=== PATIENT | female | born 1945 | race Caucasian/White ===

== ENCOUNTER 2025-04-08 14:00 | Emergency (ER) | payer MEDICARE, SELFPAY ==
[2025-04-08 14:02] VITALS: BP 169/83
[2025-04-08 14:21] LABS: Urine Character Clear (Clear)
[2025-04-08 14:31] LABS: Urine Red Blood Cell 0-2 /HPF (0-2); Urine Squamous Cell 0-2 /LPF (Few); Urine White Cell 0-2 /HPF (0-5)
[2025-04-08 15:00] VITALS: BMI 26.0
[2025-04-08 15:22] LABS: Hematocrit 34.5 % (37.0-47.0); Hemoglobin 11.3 g/dL (12.0-16.0); Mean Corp Hgb Conc. 32.8 g/dL (33.0-37.0); Mean Corpuscular Volume 90.1 fL (81.0-99.0); Nucleated Red Blood Cells % 0 %; Platelet Count 181 10^3/uL (130-400); Red Cell Dist. Width 12.6 % (11.5-14.5)
--- NOTE | 2025-04-08 15:22 | ED.GENMED ---
History of Present Illness
General
Chief Complaint: Abdominal Pain
Source: patient
Exam Limitations: none
Time Seen by Provider: 04/08/25 14:38
Nursing documentation reviewed up to this point in time: agreed with
History of Present Illness
History of Present Illness:
79-year-old female past medical history of CAD hyperlipidemia presenting to the emergency department today with concerns of right lower quadrant Bebeto pain throughout the day today had some bloating over the past week or so denies nausea vomiting
diarrhea no changes in urination.
Past History
Past History
ED Past Medical History: CAD, Hypercholesterolemia and Hypothyroidism
ED Past Surgical History: Cardiac (Cardiac stent)
Social History
Tobacco: Non-smoker
Alcohol: None
Drug: None
Living: with family
Review of Systems
Review of Systems
Allergies reviewed?: Yes
All Other Systems: ROS reviewed and negative except as documented in HPI and ROS
Phy Exam
Physical Exam
Physical Exam:
GENERAL: Alert , in no apparent distress
EYE: pupils equal and reactive
NECK: Supple, no significant adenopathy.
ENT: o/p clr, mmm.
CARDIAC: Regular rate and rhythm .
LUNGS: Clear breath sounds bilaterally, no acute respiratory distress, no wheezes/rales/rhonchi
ABDOMEN: Mild vague right lower quadrant pain, otherwise soft, without focal tenderness, no r/g, no cvat
NEUROLOGICAL: Alert and oriented, no focal neuro deficits
SKIN: Warm and dry, skin intact.
MUSCULOSKELETAL: No edema, well perfused.
PSYCH: Normal and appropriate interaction.
Course
Orders/Labs/Results
Orders:
Orders
04/08/25 14:11
Urinalysis Reflex To Culture Urgent
Date Specimen was Collected: 04/08/25
Time Specimen was Collected: 14:05
Urine Microscopic Reflex Cult Urgent
Urine Culture Urgent
BINTA Source: U
Specimen Description:
Date Specimen was Collected: 04/08/25
Time Specimen was Collected: 14:05
04/08/25 15:09
CBC/With Diff [Complete Blood Count/With Diff] Urgent
Comprehensive Metabolic Panel Urgent
04/08/25 15:10
CT Abd/Pel (IV only)-DH only Urgent
Comment:
Reason For Exam: rlq pain
Abnormal Lab Results
04/08/25 04/08/25
14:11 15:09
RBC 3.83 L 10^6/uL
(4.20-5.40)
Hgb 11.3 L g/dL
(12.0-16.0)
Hct 34.5 L %
(37.0-47.0)
MCHC 32.8 L g/dL
(33.0-37.0)
MPV 11.1 H fL
(7.4-10.4)
Abs Immat Gran (auto) 0.1 H 10^3/uL
(0-0.05)
Immature Gran % 1.3 H %
(0-0.5)
Chloride 109 H mmol/L
(98-107)
BUN 26 H mg/dl
(7-17)
Glucose 110 H mg/dl
(70-99)
Total Protein 6.0 L g/dl
(6.3-8.2)
Ur Occult Blood Reflex 3+ A
(Negative)
Leukocyte Esterase Rfl 1+ A
(Negative)
Urine Bacteria (Reflex) Few A
(Negative)
04/08/25 15:09
04/08/25 15:09
Vital Signs
Initial and Last Documented VS:
Initial Vital Signs
Temp Pulse Resp BP Pulse Ox
36.6 C 87 16 169/83 99
04/08/25 14:02 04/08/25 14:02 04/08/25 14:02 04/08/25 14:02 04/08/25 14:02
Last Documented Vital Signs
Temp Pulse Resp BP Pulse Ox
36.6 C 69 16 140/69 99
04/08/25 14:02 04/08/25 16:58 04/08/25 16:58 04/08/25 16:58 04/08/25 18:15
MDM/Problems Addressed
MDM/Problems Addressed:
79-year-old female presenting with concerns of right lower quadrant abdominal pain today did have some preceding bloating. Denies some reproducible pain to the right lower quadrant CT scan obtained that did not show any surgical abnormalities no
evidence of any emergent process labs unremarkable urinalysis normal. Stable for outpatient management return precautions given.
*Pulse Oximetry
SaO2: 99
Oxygen Mode of Delivery: Room air
Patient hypoxic: no (97)
*Critical Care Note
Total Time (30-74mins, 75-104mins- exclusive of procedures): Not Applicable
ED Attending Note
-
Portions of this chart may have been created with voice recognition software.� Occasional wrong word or��sound alike� substitutions may have occurred due to the inherent limitations of voice recognition software.
Discharge Plan
Departure
Patient Disposition: Home (Routine Discharge)
Date of Disposition: 04/08/25
Time of Disposition: 18:15
Patient with high blood pressure during this ER visit?: No
Condition: Good
Covid-19: Not Applicable
Discharge Problem:
Abdominal pain
Instructions: Abdominal Pain
Referrals:
[facility] [Other]
Activity Restrictions/Additional Instructions:
You came to the emergency department today with concerns of abdominal pain. Here you had a reassuring assessment. Please follow closely as an outpatient. Return for any worsening, new or concerning symptoms.
Interventions
Interventions:
*Risk Screen - Suicide Last Done: 04/08/25 14:02
*General Assessment Last Done: 04/08/25 15:01
*Neglect/Abuse Screening Last Done: 04/08/25 14:02
*ED- Fall Risk Assessment Last Done: 04/08/25 15:01
*ED COVID-19 Vaccine History Last Done: 04/08/25 15:01
IK-Haecog-Mddwpsxnwc Assessment Last Done: 04/08/25 14:59
Discharge Date and Time
Print Language: HEBREW
[2025-04-08 15:47] LABS: ALT (SGPT) 18 U/L (0-35); AST (SGOT) 24 U/L (14-36); Albumin 3.8 g/dl (3.5-5.0); Alkaline Phosphatase 51 U/L (38-126); Blood Urea Nitrogen 26 mg/dl (7-17); Calcium 9.9 mg/dl (8.4-10.2); Carbon Dioxide 30 mmol/L (22-30); Chloride 109 mmol/L (98-107); Estimated Creatinine Clearance 62 ml/min; Glucose 110 mg/dl (70-99); Potassium 3.5 mmol/L (3.5-5.1); Sodium 140 mmol/L (135-145); Total Protein 6.0 g/dl (6.3-8.2); eGFR > 60.00
[2025-04-08 16:36] VITALS: BP 138/59
[2025-04-08 16:58] VITALS: BP 140/69
== END 2025-04-08 18:29 | disposition home or self-care (01) ==
LOC: EMR 14:00
PROVIDERS: Physician Assistant; Student in an Organized Health Care Education/Training Program; EMERGENCY PHYSICIAN Emergency Medicine
DX: R10.9 Unspecified abdominal pain (principal); I25.10 Atherosclerotic heart disease of native coronary artery without angina pectoris; E78.00 Pure hypercholesterolemia, unspecified; E03.9 Hypothyroidism, unspecified; Z95.5 Presence of coronary angioplasty implant and graft
CPT/HCPCS: 99284; 74177; 80053; 81003; 81015; 85025; 87086; Q9967